=== PATIENT | male | born 2000 | race Caucasian/White ===

== ENCOUNTER 2025-11-04 17:03 | Emergency (ER) | payer MEDICAID ==
[~2025-11-04] VITALS: Ht 180.3 cm; Wt 118.3 kg
[2025-11-04 17:08] VITALS: TEMP 98
[2025-11-04 17:32] LABS: MEAN PLATELET VOLUME 8.0 FL (7.4-10.4); RED CELL DISTRIBUTION WIDTH 13.1 % (11.5-14.5)
[2025-11-04 17:52] LABS: CREATININE 0.98 MG/DL (0.60-1.10); PRO BRAIN NATRIURETIC PEPTIDE 57 PG/ML (0-125); TOTAL CARBON DIOXIDE 29.9 MMOL/L (24-32); eCRCL 121 ML/MIN; eGFR > 90 ML/MIN
--- NOTE | 2025-11-04 17:53 | ELECTROCARDIOGRAPH REPORT ---
[facility] Test Date: 2025-11-04 Test Time: 17:18:05 Pat Name: JANETT HAJI Department: EMERGENCY ROOM Room: Gender: M Final Assembly And Packing Supervisor: BENJAMIN : 2000 Requested By: NORIS KO Order Number: [id number] Reading MD: Dr. Noris Ko Measurements Intervals [place] Rate: 94 P: 52 CT: 145 QRS: 98 QRSD: 84 T: 4 QT: 332 QTc: 416 Interpretive Statements Sinus rhythm Borderline right axis deviation Electronically Signed On 11-04-2025 18:06:[address] Noris Ko Please click the below link to view image of tracing.
--- NOTE | 2025-11-04 18:58 | Physician Documentation ---
History of Present Illness ~ Chief Complaint: Palpitations Stated Complaint: PALPITATIONS Time Seen by MD: 18:26 HPI 25-year-old male presenting with complaints of palpitations that have been occurring several times a week for the past month. Patient states that they will come on randomly and are not related to activity or anything else that he does. He states that he will feel that his heart is racing and this will last about a minute which makes him very worried. He also gets a little bit of chest pressure when this occurs. This occured once again today earlier in the day and has lasted since. Patient denies any other associated symptoms such as dizziness, fall blunt chest pain, shortness of breath when these do occur. He states that he used to be a heavy binge drinker mainly on the weekends but that he quit drinking completely about a month ago. He also denies any drug use including no cannabis use or cigarette use. He states that he eats a lot of junk food however other that he is generally healthy. Medication Reconciliation Allergies: Coded Allergies: No Known Allergies (Unverified , 11/04/25) Past Medical History Past Medical History: No Pertinent History Review of Systems All Other Systems at this time: Reviewed and Negative Physical Exam Vital Signs: Temperature: 98.0, Source: Temporal, Heart Rate: 84, Respiratory Rate: 16, BP: 150/85, Pulse Oximetry: 99, Weight: 118.300 Oxygen Flow Rate: 0 Physical Exam I have reviewed the triage vitals. CONST: Well developed and well nourished. In no acute distress HENT: Head Atraumatic EYES: Pupils are equal, round and reactive to light. Normal conjunctiva NECK: Normal range of motion. Supple. CARDIO: Normal rate and regular rhythm. No murmurs, rubs, or gallops. S1, S2. PULM/CHEST: No respiratory distress. Lungs clear to auscultation. No wheeze ABD: Soft and nontender. Nondistended. Bowel sounds normal. No guarding. : Exam deferred MSK: No edema. No deformity. NEURO: Alert and oriented to person, place and time. Moving all extremities SKIN: Warm and dry. PSYCH: Normal mood and affect. Good eye contact. Progress Results/Orders Results/Orders Orders - TOÑO LEMUS MD Chest,Single View (11/04/25 19:04) Completed Orders - TOÑO LEMUS MD Chest,Single View (11/04/25 19:04) Vital Signs 11/04/25 11/04/25 11/04/25 11/04/25 17:08 19:00 19:00 20:00 Temp 98.0 Pulse 84 85 84 Resp 16 14 14 14 B/P (MAP) 150/85 138/72 (94) 146/87 (106) Pulse Ox 99 97 96 O2 Flow Rate 0 0 0 Laboratory Tests Test 11/04/25 17:22 White Blood Count 9.2 Red Blood Count 5.37 Hemoglobin 14.8 Hematocrit 44.0 Mean Corpuscular Volume 81.9 Mean Corpuscular Hemoglobin 27.7 Mean Corpuscular Hemoglobin Concent 33.8 Red Cell Distribution Width 13.1 Platelet Count 405 Mean Platelet Volume 8.0 Neutrophils (%) (Auto) 66.4 Lymphocytes (%) (Auto) 25.2 Monocytes (%) (Auto) 4.6 Eosinophils (%) (Auto) 3.1 Basophils (%) (Auto) 0.7 Neutrophils # (Auto) 6.1 Lymphocytes # (Auto) 2.3 Monocytes # (Auto) 0.4 Eosinophils # (Auto) 0.3 Basophils # (Auto) 0.1 CBC Comment Sodium Level 139 Potassium Level 4.0 Chloride Level 104 Carbon Dioxide Level 29.9 Anion Gap 5 L Blood Urea Nitrogen 14 Creatinine 0.98 Estimated GFR/1.73 m2 > 90 BUN/Creatinine Ratio 14.3 Glucose Level 93 Calcium Level 8.8 Magnesium Level 2.1 Troponin I High Sensitivity 4 Pro-B-Type Natriuretic Peptide 57 Albumin 4.2 Chemistry Comments EKG/XRAY/CT/US/VASC/MRI EKG : Additional Comment EKG as interpreted by me indicating normal sinus rhythm at a rate of 94 beats per minute, no ischemia, normal axis Chest X-Ray : Additional Comments CHEST RADIOGRAPH INDICATION: palpitations TECHNIQUE: Single frontal view of the chest was obtained COMPARISON: None FINDINGS: Lines and Tubes: None Lungs: No focal consolidation. Pleura: No effusion. No pneumothorax. Cardiomediastinal contours: Unremarkable Bones: No acute osseous abnormality. IMPRESSION: No acute cardiopulmonary disease. Heart Score: Heart Score Response (Comments) Value History Slightly Suspicious 0 EKG Normal 0 Age <45 0 Risk Factors No known risk factors 0 Troponin Normal limit 0 Total 0 Medical Decision Making Additional information obtaine: N/A Findings - Heart Score: 0 Differential Dx:Considerations: Include: angina, chest wall pain, pericarditis Additional Information 25-year-old male presenting with sensations of palpitations. Labs and imaging ordered. His workup is completely unremarkable. All labs are normal. Chest x- ray was unremarkable. EKG showed normal sinus rhythm with no abnormalities. Given the patient recently stopped drinking alcohol I believe some of this may be a rebound effect to that. Additionally he has been undergoing some emotional distress which can lead to anxiety may be the cause for this. Indicates there is no indication for any further evaluation and intervention at this time. I advised the patient to continue to abstain from alcohol and to ensure he is drinking plenty of fluids and getting enough and adequate sleep. Also advised on cleaning up his diet to start eating healthier foods. He is to monitor his symptoms for improvement and resolution. He was advised to establish care and follow up with the primary care physician in the next month if his symptoms do not resolve. Also given precautions to return to the ED with any acutely worsening symptoms. Departure Disposition: HOME / SELF CARE / HOMELESS Impression: Primary Impression: Anxiety Additional Impression: Palpitations Condition: Stable Discharge Instructions: Palpitations, [id number] Additional Instructions: Please ensure that you are getting plenty of rest and drinking plenty of fluids. Continue to abstain from alcohol. Start eating healthier foods and minimize unhealthy fried foods especially. Monitor her symptoms for improvement. Your symptoms should resolve on their own over the course of the next couple of months. If they do not please establish care with a primary care physician for further evaluation. Return to the ED with any acutely worsening symptoms. Referrals: NO PRIMARY CARE PROVIDER (PCP) Signature Scribe Signature: 1 Attestation: The note accurately reflects work and decisions made by me.Toño Davis MD 11/04/25 20:51 TOÑO LEMUS MD Nov 04, 2025 18:58
--- NOTE | 2025-11-04 19:38 | RADIOLOGY REPORT ---
CHEST RADIOGRAPH INDICATION: palpitations TECHNIQUE: Single frontal view of the chest was obtained COMPARISON: None FINDINGS: Lines and Tubes: None Lungs: No focal consolidation. Pleura: No effusion. No pneumothorax. Cardiomediastinal contours: Unremarkable Bones: No acute osseous abnormality. IMPRESSION: No acute cardiopulmonary disease.
[2025-11-04 20:00] VITALS: BP 146/87; PULSE 84; RESP 14; O2SAT 96
== END 2025-11-04 21:09 | disposition home or self-care (01) ==
LOC: ER 17:04
DX: R00.2 Palpitations (principal); F41.9 Anxiety disorder, unspecified
CPT/HCPCS: 36415; 71045; 80048; 83735; 83880; 84484; 85025; 93005; 99285